=== PATIENT | male | born 1990 | race Two or more races ===

== ENCOUNTER 2018-03-07 14:15 | Emergency (ER) | payer OTHER ==
[~2018-03-07] VITALS: Ht 170.2 cm; Wt 63.6 kg
[~2018-03-07 14:15] MED LIST: BACTRIM,SEPT1 TABLET; BACTRIM,SEPT1 TABLET PO; CIPRO500 MG PO; INDOCIN25 MG PO; MOTRIN600 MG; MOTRIN800 MG PO; NO MEDS; NOHOMEMEDS; NORCO 7.5/321 TABLET PO; PERCOCET 5/31 TABLET PO; ROBITUSSIN100 MG/5 M PO; TESSALON PERLE100 MG PO; VALIUM5 MG PO
[2018-03-07 17:05] VITALS: BP 117/75
== END 2018-03-07 17:06 | disposition home or self-care (01) ==
LOC: EME 14:15
PROC: 0HQ1XZZ Repair Face Skin, External Approach (ICD-10-PCS; principal; 2018-03-07)
PROC: 3E0234Z Introduction of Serum, Toxoid and Vaccine into Muscle, Percutaneous Approach (ICD-10-PCS; 2018-03-07)
DX: S01.112A Laceration without foreign body of left eyelid and periocular area, initial encounter (principal); V86.56XA Driver of dirt bike or motor/cross bike injured in nontraffic accident, initial encounter; Z23 Encounter for immunization; F17.200 Nicotine dependence, unspecified, uncomplicated
CPT/HCPCS: 70486; 99281; 99284